=== PATIENT | male | born 1965 | race American Indian/Alaskan Native ===

== ENCOUNTER 2018-03-21 10:51 | Emergency (ER) | payer MEDICARE ==
[2018-03-21 11:01] VITALS: BMI 22.7
[2018-03-21 11:05] VITALS: BP 133/79; PULSE 82; RESP 20; TEMP 97.9; O2SAT 98
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
== END 2018-03-21 12:03 | disposition home or self-care (01) ==
LOC: H.ER 10:51
DX: M17.12 Unilateral primary osteoarthritis, left knee (principal)